=== PATIENT | male | born 2000 | race Caucasian/White ===

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

== ENCOUNTER → 2018-06-08 | Outpatient (CLI) | payer OTHER ==
[~2018-06-08] MED LIST changes: +LOMOTIL 2.5-0.1 EACH PO; +ZOFRAN ODT4 MG SL
== END | disposition home or self-care (01) ==
LOC: RAD 11:51
DX: M25.572 Pain in left ankle and joints of left foot (principal)

== ENCOUNTER → 2018-06-15 | Outpatient (CLI) | payer OTHER ==
[2018-06-15 13:10] LABS: BASO # 0.1 10*3/uL (0.0-0.1); BASO % 0.6 % (0.0-1.0); EOS # 0.5 10*3/uL (0.0-0.4); EOS % 6.5 % (1.0-4.0); HEMATOCRIT 40.9 % (42.0-52.0); HEMOGLOBIN 13.8 g/dl (14.0-18.0); LYMPH # 2.7 10*3/uL (1.3-4.4); LYMPH % 32.6 % (27.0-41.0); MEAN CELL VOLUME 87.8 fl (80.0-94.0); MEAN CORPUSCULAR HGB 29.6 pg (27.0-31.0); MEAN CORPUSCULAR HGB CONC 33.7 g/dl (33.0-37.0); MEAN PLATELET VOLUME 9.8 fl (9.6-12.3); MONO # 0.5 10*3/uL (0.1-1.0); MONO % 6.2 % (3.0-9.0); NEUT # 4.4 10*3/uL (2.3-7.9); NEUT % 53.7 % (47.0-73.0); PLATELET COUNT AUTOMATED 209 10*3/uL (130-400); RED BLOOD COUNT 4.66 10*6/uL (4.50-5.90); RED CELL DISTRI WIDTH 12.4 % (0-14.5); WHITE BLOOD COUNT 8.1 10*3/uL (4.8-10.8)
[2018-06-15 13:40] LABS: ALBUMIN 3.8 gm/dl (3.1-4.5); ALKALINE PHOSPHATASE 125 U/L (45-117); BUN 9 mg/dl (7-24); CHLORIDE 106 mmol/L (98-107); CREATININE 0.84 mg/dL (0.70-1.30); SGOT/AST 11 IU/L (3-35); SGPT/ALT 15 U/L (12-78); SODIUM 144 mmol/L (136-145); TOTAL PROTEIN 7.1 gm/dL (6.4-8.2)
== END | disposition home or self-care (01) ==
LOC: LAB 12:25
PROVIDERS: Nurse Practitioner Family
DX: L70.0 Acne vulgaris (principal); Z79.2 Long term (current) use of antibiotics

== ENCOUNTER 2019-03-06 13:24 | Emergency (ER) | payer OTHER ==
[~2019-03-06] VITALS: Ht 172.7 cm; Wt 68.0 kg
[2019-03-06 13:27] VITALS: BP 133/77
== END 2019-03-06 13:38 | disposition home or self-care (01) ==
LOC: ED 13:24
DX: S05.01XA Injury of conjunctiva and corneal abrasion without foreign body, right eye, initial encounter (principal); Z79.899 Other long term (current) drug therapy; W22.8XXA Striking against or struck by other objects, initial encounter; Y93.H2 Activity, gardening and landscaping; Y92.89 Other specified places as the place of occurrence of the external cause; Y99.8 Other external cause status

== ENCOUNTER → 2021-04-07 | Outpatient (CLI) | payer OTHER | END | disposition home or self-care (01) | LOC: COVID19 16:03 | PROVIDERS: ATTEND Internal Medicine | DX: Z11.52 Encounter for screening for COVID-19 (principal) ==

== ENCOUNTER → 2021-04-15 | Outpatient (CLI) | payer OTHER | END | disposition home or self-care (01) | LOC: COVID19 16:11 | PROVIDERS: ATTEND Internal Medicine | DX: Z11.52 Encounter for screening for COVID-19 (principal) ==

== ENCOUNTER 2021-05-12 10:58 | Emergency (ER) | payer OTHER ==
[~2021-05-12] VITALS: Wt 63.5 kg
[2021-05-12 11:04] VITALS: BP 153/98
[2021-05-12] MEDS ORDERED: IBUPROFEN600 MG PO (15:28)
== END 2021-05-12 15:34 | disposition home or self-care (01) ==
LOC: ED 10:58
DX: M79.89 Other specified soft tissue disorders (principal); T50.B95A Adverse effect of other viral vaccines, initial encounter; Z79.899 Other long term (current) drug therapy; Y92.89 Other specified places as the place of occurrence of the external cause

== ENCOUNTER 2023-08-13 14:24 | Emergency (ER) | payer OTHER ==
[~2023-08-13] VITALS: Ht 172.7 cm; Wt 81.6 kg
[~2023-08-13 14:24] MED LIST changes: +IBUPROFEN600 MG PO
[2023-08-13 14:31] VITALS: BP 125/90
[2023-08-13] MEDS ORDERED: SODIUM CHLORIDE 0.9% 1,000 ML IV ONE (14:35)
[2023-08-13] MEDS ORDERED: Metoclopramide Hydrochloride 10 MG/2 ML AMP IV ONE (14:40)
[2023-08-13] MEDS ORDERED: diphenhydrAMINE hydrochloride 50 MG/ML VIAL IV ONE (14:40)
[2023-08-13] MEDS ORDERED: DECADRON4 MG PO (15:23)
[2023-08-13] MEDS ORDERED: REGLAN10 M1 PO (17:12)
== END 2023-08-13 17:31 | disposition home or self-care (01) ==
LOC: ED 14:24
DX: F12.929 Cannabis use, unspecified with intoxication, unspecified (principal); R11.2 Nausea with vomiting, unspecified; R10.9 Unspecified abdominal pain; Z79.899 Other long term (current) drug therapy

== ENCOUNTER 2023-09-25 19:01 | Emergency (ER) | payer OTHER ==
[~2023-09-25] VITALS: Ht 172.7 cm; Wt 83.9 kg
[~2023-09-25 19:01] MED LIST changes: +DECADRON4 MG PO; +REGLAN10 M1 PO
[2023-09-25 19:19] VITALS: BP 147/94
[2023-09-25] MEDS ORDERED: SODIUM CHLORIDE 0.9% 1,000 ML IV ONE (19:20)
[2023-09-25] MEDS ORDERED: MINOCYCLINE HYD50 MG PO (19:26)
[2023-09-25 19:32] LABS: BASO # 0.1 10*3/uL (0.0-0.1); BASO % 0.7 % (0.0-1.0); EOS # 0.8 10*3/uL (0.0-0.4); EOS % 9.6 % (1.0-4.0); HEMATOCRIT 42.3 % (42.0-52.0); LYMPH # 3.5 10*3/uL (1.3-4.4); LYMPH % 43.1 % (27.0-41.0); MEAN CELL VOLUME 87.2 fl (80.0-94.0); MEAN CORPUSCULAR HGB 29.7 pg (27.0-31.0); MEAN PLATELET VOLUME 9.1 fl (9.6-12.3); MONO # 0.4 10*3/uL (0.1-1.0); MONO % 5.1 % (3.0-9.0); NEUT # 3.4 10*3/uL (2.3-7.9); NEUT % 41.3 % (47.0-73.0); PLATELET COUNT AUTOMATED 239 10*3/uL (130-400); RED BLOOD COUNT 4.85 10*6/uL (4.50-5.90); RED CELL DISTRI WIDTH 11.9 % (0-14.5); WHITE BLOOD COUNT 8.2 10*3/uL (4.8-10.8)
[2023-09-25] MEDS ORDERED: hydrOXYzine pamoate 25 MG CAP PO ONE (19:35)
[2023-09-25 19:50] LABS: BILIRUBIN Negative (Negative); BLOOD Negative (Negative); CLARITY Clear (Clear); COLOR Yellow (Yellow); GLUCOSE Negative (Negative); KETONE Negative (Negative); LEUKO ESTERASE Negative (Negative); NITRITE Negative (Negative); SPECIFIC GRAVITY 1.015 (1.001-1.030); UROBILINOGEN 0.2 E.U./dl (0.0-1.0)
[2023-09-25 19:57] LABS: ALKALINE PHOSPHATASE 115 U/L (46-116); BUN 11 mg/dl (9-23); CHLORIDE 106 mmol/L (98-107); ETHYL ALCOHOL 3.6 mg/dl (<3); LIPASE 25 U/L (12-53); POTASSIUM 3.2 mmol/L (3.4-5.1); SGPT/ALT 20 U/L (5-49); TOTAL PROTEIN 7.1 gm/dL (6.0-8.0)
[2023-09-25 19:57] LABS: URINE AMPHETAMINES Negative (1000ng/ml); URINE BARBITURATES Negative (200ng/ml); URINE BENZODIAZEPINES Negative (200ng/ml); URINE CANNABINOIDS (THC) Negative (50ng/ml); URINE COCAINE Negative (300ng/ml); URINE METHADONE Negative (300ng/ml); URINE OPIATES Negative (300ng/ml); URINE PHENCYCLIDINE Negative (25ng/ml)
[2023-09-25 20:07] LABS: MUCOUS TRACE; WBC 0-2 wbc/hpf (0-5)
[2023-09-25] MEDS ORDERED: POTASSIUM CHLORIDE 20 MEQ TAB PO ONE (20:10)
[2023-09-25] MEDS ORDERED: VISTARIL25 MG PO (20:24)
[2023-09-25] MEDS ORDERED: MELOXICAM15 MG PO (20:24)
[2023-09-25] MEDS ORDERED: Meloxicam 15 MG TAB PO ONE (21:00)
== END 2023-09-25 21:09 | disposition home or self-care (01) ==
LOC: ED 19:01
PROVIDERS: Internal Medicine
DX: S83.91XA Sprain of unspecified site of right knee, initial encounter (principal); F41.9 Anxiety disorder, unspecified; J45.909 Unspecified asthma, uncomplicated; Z98.890 Other specified postprocedural states; Z79.899 Other long term (current) drug therapy; X58.XXXA Exposure to other specified factors, initial encounter; Y93.89 Activity, other specified; Y92.89 Other specified places as the place of occurrence of the external cause; Y99.8 Other external cause status

== ENCOUNTER 2023-11-29 13:40 | Emergency (ER) | payer OTHER ==
[~2023-11-29] VITALS: Ht 175.2 cm; Wt 83.5 kg
[~2023-11-29 13:40] MED LIST changes: +MELOXICAM15 MG PO; +MINOCYCLINE HYD50 MG PO; +VISTARIL25 MG PO
[2023-11-29 14:43] VITALS: BP 134/87
[2023-11-29 16:22] LABS: BASO # 0.1 10*3/uL (0.0-0.1); BASO % 0.8 % (0.0-1.0); EOS # 0.9 10*3/uL (0.0-0.4); EOS % 11.3 % (1.0-4.0); HEMATOCRIT 43.5 % (42.0-52.0); LYMPH # 2.9 10*3/uL (1.3-4.4); LYMPH % 36.1 % (27.0-41.0); MEAN CELL VOLUME 87.9 fl (80.0-94.0); MEAN CORPUSCULAR HGB 29.9 pg (27.0-31.0); MEAN PLATELET VOLUME 9.3 fl (9.6-12.3); MONO # 0.5 10*3/uL (0.1-1.0); MONO % 6.1 % (3.0-9.0); NEUT # 3.6 10*3/uL (2.3-7.9); NEUT % 45.3 % (47.0-73.0); PLATELET COUNT AUTOMATED 215 10*3/uL (130-400); RED BLOOD COUNT 4.95 10*6/uL (4.50-5.90); RED CELL DISTRI WIDTH 12.3 % (0-14.5); WHITE BLOOD COUNT 7.9 10*3/uL (4.8-10.8)
[2023-11-29 16:42] LABS: ALKALINE PHOSPHATASE 122 U/L (46-116); BUN 9 mg/dl (9-23); CHLORIDE 105 mmol/L (98-107); LIPASE 28 U/L (12-53); POTASSIUM 3.4 mmol/L (3.4-5.1); SGPT/ALT 17 U/L (5-49); TOTAL PROTEIN 7.1 gm/dL (6.0-8.0)
[2023-11-29 17:12] LABS: BILIRUBIN Negative (Negative); BLOOD Negative (Negative); CLARITY Clear (Clear); COLOR Dark Yellow (Yellow); GLUCOSE Negative (Negative); KETONE Trace (Negative); LEUKO ESTERASE Negative (Negative); NITRITE Negative (Negative); PH 7.5 (4.5-8.0); SPECIFIC GRAVITY 1.025 (1.001-1.030)
[2023-11-29 17:20] LABS: MUCOUS TRACE; RBC 0-2 rbc/hpf (0-2); WBC 0-2 wbc/hpf (0-5)
[2023-11-29] MEDS ORDERED: MIRALAX17 GM PO (17:42)
== END 2023-11-29 18:00 | disposition home or self-care (01) ==
LOC: ED 13:40
PROVIDERS: Nurse Practitioner
DX: R10.9 Unspecified abdominal pain (principal); Z79.899 Other long term (current) drug therapy

== ENCOUNTER 2024-04-30 23:47 | Emergency (ER) | payer OTHER ==
[~2024-04-30] VITALS: Ht 175.2 cm; Wt 83.9 kg
[~2024-04-30 23:47] MED LIST changes: +DEXAMETHASONE0.5 MG PO; +MIRALAX17 GM PO
[2024-04-30 23:58] VITALS: BP 152/99
[2024-05-01] MEDS ORDERED: SODIUM CHLORIDE 0.9% 1,000 ML IV ONE (00:20)
[2024-05-01] MEDS ORDERED: Thiamine 200 MG/2 ML VIAL IV ONE (00:20)
[2024-05-01] MEDS ORDERED: LORazepam 2 MG/ML VIAL IV ONE (00:20)
[2024-05-01 00:35] LABS: BASO # 0.1 10*3/uL (0.0-0.1); BASO % 0.9 % (0.0-1.0); EOS # 0.5 10*3/uL (0.0-0.4); EOS % 5.8 % (1.0-4.0); HEMATOCRIT 40.9 % (42.0-52.0); LYMPH # 3.2 10*3/uL (1.3-4.4); LYMPH % 40.6 % (27.0-41.0); MEAN CELL VOLUME 87.2 fl (80.0-94.0); MEAN CORPUSCULAR HGB 29.9 pg (27.0-31.0); MEAN CORPUSCULAR HGB CONC 34.2 g/dl (33.0-37.0); MEAN PLATELET VOLUME 9.3 fl (9.6-12.3); MONO # 0.6 10*3/uL (0.1-1.0); MONO % 7.2 % (3.0-9.0); NEUT # 3.6 10*3/uL (2.3-7.9); NEUT % 45.4 % (47.0-73.0); PLATELET COUNT AUTOMATED 225 10*3/uL (130-400); RED BLOOD COUNT 4.69 10*6/uL (4.50-5.90); RED CELL DISTRI WIDTH 12.4 % (0-14.5); WHITE BLOOD COUNT 7.9 10*3/uL (4.8-10.8)
[2024-05-01 00:55] LABS: BUN 11 mg/dl (9-23); CHLORIDE 106 mmol/L (98-107); POTASSIUM 3.1 mmol/L (3.4-5.1)
[2024-05-01] MEDS ORDERED: POTASSIUM CHLORIDE 20 MEQ TAB PO ONE (01:05)
== END 2024-05-01 02:22 | disposition home or self-care (01) ==
LOC: ED 23:47
PROVIDERS: Internal Medicine
DX: R00.2 Palpitations (principal); F41.9 Anxiety disorder, unspecified; E87.6 Hypokalemia; J45.909 Unspecified asthma, uncomplicated; Z98.890 Other specified postprocedural states

== ENCOUNTER 2024-09-18 16:21 | Emergency (ER) | payer OTHER ==
[~2024-09-18] VITALS: Ht 175.2 cm; Wt 75.7 kg
[2024-09-18 16:35] VITALS: BP 139/94
[2024-09-18 17:45] LABS: BASO % 0.5 % (0.0-1.0); EOS # 0.5 10*3/uL (0.0-0.4); MEAN CELL VOLUME 82.3 fl (80.0-94.0); MEAN CORPUSCULAR HGB 28.8 pg (27.0-31.0); MEAN PLATELET VOLUME 9.7 fl (9.6-12.3); MONO # 0.4 10*3/uL (0.1-1.0); MONO % 6.3 % (3.0-9.0); NEUT # 2.4 10*3/uL (2.3-7.9); NEUT % 40.6 % (47.0-73.0); PLATELET COUNT AUTOMATED 178 10*3/uL (130-400); RED BLOOD COUNT 4.13 10*6/uL (4.50-5.90); RED CELL DISTRI WIDTH 12.2 % (0-14.5)
[2024-09-18 18:04] LABS: BUN 8 mg/dl (9-23); CHLORIDE 105 mmol/L (98-107); POTASSIUM 3.5 mmol/L (3.4-5.1)
== END 2024-09-18 19:22 | disposition home or self-care (01) ==
LOC: ED 16:21
PROVIDERS: Nurse Practitioner Family
DX: R07.1 Chest pain on breathing (principal); F41.9 Anxiety disorder, unspecified; E87.6 Hypokalemia; J45.909 Unspecified asthma, uncomplicated; Z98.890 Other specified postprocedural states

== ENCOUNTER 2024-10-20 02:37 | Emergency (ER) | payer OTHER ==
[~2024-10-20] VITALS: Ht 175.2 cm; Wt 72.6 kg
[2024-10-20] MEDS ORDERED: SERTRALINE HYDR50 MG PO (03:01)
[2024-10-20] MEDS ORDERED: METOCLOPRAMIDE10 M1 PO (03:03)
[2024-10-20] MEDS ORDERED: SOLU-CORTE100 MG/2 M IJ (03:03)
[2024-10-20] MEDS ORDERED: Ondansetron Hydrochloride 4 MG/2 ML VIAL IV ONE (03:20)
[2024-10-20] MEDS ORDERED: SODIUM CHLORIDE 0.9% 1,000 ML IV ONE (03:20)
[2024-10-20 03:35] LABS: BASO % 0.3 % (0.0-1.0); EOS # 0.3 10*3/uL (0.0-0.4); EOS % 5.2 % (1.0-4.0); HEMATOCRIT 38.6 % (42.0-52.0); MEAN CELL VOLUME 82.7 fl (80.0-94.0); MEAN CORPUSCULAR HGB 28.9 pg (27.0-31.0); MEAN PLATELET VOLUME 9.2 fl (9.6-12.3); MONO # 0.3 10*3/uL (0.1-1.0); MONO % 5.2 % (3.0-9.0); NEUT # 4.2 10*3/uL (2.3-7.9); NEUT % 64.3 % (47.0-73.0); PLATELET COUNT AUTOMATED 153 10*3/uL (130-400); RED BLOOD COUNT 4.67 10*6/uL (4.50-5.90); RED CELL DISTRI WIDTH 12.6 % (0-14.5); WHITE BLOOD COUNT 6.5 10*3/uL (4.8-10.8)
[2024-10-20 03:56] LABS: ALKALINE PHOSPHATASE 84 U/L (46-116); BUN 15 mg/dl (9-23); CHLORIDE 103 mmol/L (98-107); POTASSIUM 3.2 mmol/L (3.4-5.1); SGPT/ALT 22 U/L (5-49)
[2024-10-20 04:20] VITALS: BP 106/58
[2024-10-20] MEDS ORDERED: Ondansetron4 MG PO (04:25)
[2024-10-20] MEDS ORDERED: POTASSIUM CHLORIDE 20 MEQ TAB PO ONE (04:25)
== END 2024-10-20 04:37 | disposition home or self-care (01) ==
LOC: ED 02:37
PROVIDERS: Internal Medicine
DX: A08.4 Viral intestinal infection, unspecified (principal); R11.2 Nausea with vomiting, unspecified; Z79.899 Other long term (current) drug therapy

== ENCOUNTER 2025-01-02 09:21 | Emergency (ER) | payer OTHER ==
[~2025-01-02] VITALS: Wt 77.1 kg
[~2025-01-02 09:21] MED LIST changes: +METOCLOPRAMIDE10 M1 PO; +Ondansetron4 MG PO; +SERTRALINE HYDR50 MG PO; +SOLU-CORTE100 MG/2 M IJ
[2025-01-02] MEDS ORDERED: LORazepam 1 MG TAB PO ONE (10:25)
[2025-01-02 10:35] LABS: BASO # 0.1 10*3/uL (0.0-0.1); BASO % 0.7 % (0.0-1.0); EOS # 0.4 10*3/uL (0.0-0.4); EOS % 6.0 % (1.0-4.0); MEAN CELL VOLUME 84.4 fl (80.0-94.0); MEAN CORPUSCULAR HGB 29.6 pg (27.0-31.0); MEAN PLATELET VOLUME 9.3 fl (9.6-12.3); MONO # 0.5 10*3/uL (0.1-1.0); MONO % 6.9 % (3.0-9.0); NEUT # 3.5 10*3/uL (2.3-7.9); NEUT % 51.0 % (47.0-73.0); NUCLEATED RED BLOOD CELL 0.0 % (0.0-0.0); NUCLEATED RED BLOOD CELL 0.0 10*3/uL (0.0-0.0); PLATELET COUNT AUTOMATED 231 10*3/uL (130-400); RED CELL DISTRI WIDTH 12.5 % (0-14.5)
[2025-01-02 10:58] LABS: BUN 9 mg/dl (9-23)
[2025-01-02 10:59] VITALS: BP 140/101
== END 2025-01-02 11:25 | disposition home or self-care (01) ==
LOC: ED 09:21
PROVIDERS: Internal Medicine
DX: F41.9 Anxiety disorder, unspecified (principal); R07.89 Other chest pain; Z79.899 Other long term (current) drug therapy

== ENCOUNTER 2025-01-20 22:19 | Emergency (ER) | payer OTHER ==
[~2025-01-20] VITALS: Ht 175.2 cm; Wt 77.1 kg
[2025-01-20 22:38] VITALS: BP 145/98
[2025-01-20] MEDS ORDERED: Ondansetron Hydrochloride 4 MG/2 ML VIAL IV ONE (22:50)
[2025-01-20] MEDS ORDERED: SODIUM CHLORIDE 0.9% 1,000 ML IV ONE (22:50)
[2025-01-20 22:57] LABS: BASO # 0.1 10*3/uL (0.0-0.1); BASO % 0.8 % (0.0-1.0); EOS # 0.7 10*3/uL (0.0-0.4); EOS % 8.5 % (1.0-4.0); MEAN CELL VOLUME 85.6 fl (80.0-94.0); MEAN CORPUSCULAR HGB 29.6 pg (27.0-31.0); MEAN PLATELET VOLUME 9.3 fl (9.6-12.3); MONO # 0.5 10*3/uL (0.1-1.0); MONO % 5.8 % (3.0-9.0); NEUT # 3.5 10*3/uL (2.3-7.9); NEUT % 41.0 % (47.0-73.0); NUCLEATED RED BLOOD CELL 0.0 % (0.0-0.0); NUCLEATED RED BLOOD CELL 0.0 10*3/uL (0.0-0.0); PLATELET COUNT AUTOMATED 234 10*3/uL (130-400); RED CELL DISTRI WIDTH 12.0 % (0-14.5)
[2025-01-20 23:16] LABS: BUN 9 mg/dl (9-23); SGPT/ALT 17 U/L (5-49)
[2025-01-21] MEDS ORDERED: POTASSIUM CHLORIDE 20 MEQ TAB PO ONE (00:35)
== END 2025-01-21 00:45 | disposition home or self-care (01) ==
LOC: ED 22:19
PROVIDERS: Internal Medicine
DX: K31.89 Other diseases of stomach and duodenum (principal); E87.6 Hypokalemia; Z90.49 Acquired absence of other specified parts of digestive tract; Z79.899 Other long term (current) drug therapy